=== PATIENT | female | born 1990 | race African-American/Black ===

== ENCOUNTER 2024-02-26 08:14 | Emergency (ER) | payer OTHER ==
[~2024-02-26] VITALS: Ht 165.1 cm; Wt 70.0 kg
[2024-02-26 08:17] VITALS: O2SAT 100
[2024-02-26] MEDS: METHYLPREDNISOLONE SOD SUCC 125MG/2ML (ACT-O-VIAL) IV ONE (08:41)
[2024-02-26] MEDS ORDERED: P20 PO (09:56)
[2024-02-26 10:01] VITALS: BP 119/75; PULSE 108; RESP 19; TEMP 36.78072; O2SAT 99
== END 2024-02-26 10:21 | disposition home or self-care (01) ==
LOC: ER 08:14
DX: J45.901 Unspecified asthma with (acute) exacerbation (principal); Z88.1 Allergy status to other antibiotic agents; Z88.2 Allergy status to sulfonamides
CPT/HCPCS: 71045; 96374; 99283; J2919; Z7610 ×3